=== PATIENT | female | born 1960 | race Asian ===

== ENCOUNTER 2024-11-01 19:37 | Emergency (ER) | payer BC, SELFPAY ==
[2024-11-01 19:59] VITALS: BP 135/87
[2024-11-01 20:16] LABS: % Basophils 0.8 % (0-2); % Eosinophils 1.8 % (0-6); % Immature Granulocytes 0.3 % (0-0.5); % Lymphocytes 21.6 % (20.5-51.1); % Monocytes 7.2 % (1.7-9.3); % Neutrophils 68.3 % (42.2-75.2); Absolute Basophils 0.1 10^3/uL (0-0.2); Absolute Eosinophils 0.1 10^3/uL (0-0.7); Absolute Lymphocytes 1.7 10^3/uL (1.2-3.4); Absolute Monocytes 0.6 10^3/uL (0.1-0.6); Absolute Neutrophils 5.2 10^3/uL (1.4-6.5); Hemoglobin 11.6 g/dL (12.0-16.0); Mean Corp Hgb Conc. 33.1 g/dL (33.0-37.0); Mean Corpuscular Volume 96.7 fL (81.0-99.0); Mean Platelet Volume 8.3 fL (7.4-10.4); Nucleated Red Blood Cells % 0 %; Platelet Count 290 10^3/uL (130-400); Red Blood Cell Count 3.62 10^6/uL (4.20-5.40); Red Cell Dist. Width 13.3 % (11.5-14.5); White Blood Cell Count 7.7 10^3/uL (4.8-10.8)
[2024-11-01 20:32] LABS: ALT (SGPT) 23 U/L (0-35); AST (SGOT) 24 U/L (14-36); Albumin 4.6 g/dl (3.5-5.0); Alkaline Phosphatase 60 U/L (38-126); Blood Urea Nitrogen 15 mg/dl (7-17); Carbon Dioxide 20 mmol/L (22-30); Chloride 102 mmol/L (98-107); Glucose 119 mg/dl (70-99); Potassium 3.7 mmol/L (3.5-5.1); Sodium 135 mmol/L (135-145); Total Bilirubin 0.2 mg/dl (0.2-1.3); Total Protein 7.1 g/dl (6.3-8.2); eGFR > 60.00
--- NOTE | 2024-11-01 22:16 | ED.GENMED ---
History of Present Illness
<MATT Burnette - Last Filed: 11/02/24 00:44>
General
Chief Complaint: Weakness
Source: patient and significant other
Time Seen by Provider: 11/01/24 22:01
Nursing documentation reviewed up to this point in time: agreed with
History of Present Illness
History of Present Illness:
Pt is a 64 yo F who presents to the emergency department for left leg weakness x 1 day. Pt states that her left leg has felt weak to walk on and use and it has been worsening today. Pt reports that she fell about 3 weeks ago. She states that she
tripped on uneven pavement and fell forward, landed on her left leg and hit her face. She states that she was able to walk after the fall and that she got a black left eye from how she landed. Pt denies LOC during or after the fall. Her
reports that he has been helping her walk today as she can not put her full body weight on her left leg. Pt states that she is able move her left leg, left foot, and left toes. Pt also admits to having a mild headache. Pt reports that she has taken
Tylenol and Klonopin due to having increased anxiety. Pt denies having left leg numbness and tingling, left arm or left face weakness, bruising or deformity of the left leg, N/V, dizziness, fever, chills, shortness of breath. Pt reports that she did
not seek medical treatment after the fall 3 weeks ago.
Review of Systems
<MATT Burnette - Last Filed: 11/02/24 00:44>
Review of Systems
Allergies reviewed?: Yes
Constitutional: Reports no symptoms
Respiratory: Reports no symptoms
Cardiac: Reports no symptoms
ABD/GI: Reports no symptoms
Skin: Reports no symptoms
Neurological: Reports headache and weakness (left leg weakness)
Phy Exam
<MATT Burnette - Last Filed: 11/02/24 00:44>
General Physical Exam
General Presentation: well appearing and no apparent distress
General age: appears stated age
General Skin: warm
General Habitus: normal
General Mental: alert
General Hydration: appears well hydrated
Cardiovascular Exam
Cardiovascular Exam: regular rate/rhythm
Pulmonary Exam
Pulmonary Exam: lungs clear
Neurological Exam
Neurological Exam: alert, oriented x3 and speech normal
Musculoskeletal Exam
Musculoskeletal Exam: no edema and other (No pain with palpation of bilateral lower extremities or left hip. AROM and PROM of b/l lower extremities. Weakness of left lower extremity compared to right lower extremity with movement)
Skin Exam
Skin Exam: normal color and other (ecchymosis on lower eyelid of left eye)
Course
<Gilma Atkinson [facility] - Last Filed: 11/02/24 00:44>
Orders/Labs/Results
Orders:
Orders
11/01/24 20:07
Complete Blood Count/With Diff Urgent
Comprehensive Metabolic Panel Urgent
11/01/24 22:45
Urinalysis Reflex To Culture Urgent
Date Specimen was Collected: 11/02/24
Time Specimen was Collected: 00:40
11/02/24 00:34
CT Lumbar Spine W/o Iv Contras Urgent
Comment:
Reason For Exam: left leg wekaness
11/02/24 00:38
CT Head & Neck Angio W/wo IV Urgent
Comment:
Reason For Exam: left leg weakness
11/02/24 00:42
Urine Microscopic Reflex Cult Urgent
Abnormal Lab Results
11/01/24 11/02/24
20:07 00:42
RBC 3.62 L 10^6/uL
(4.20-5.40)
Hgb 11.6 L g/dL
(12.0-16.0)
Hct 35.0 L %
(37.0-47.0)
MCH 32.0 H pg
(27.0-31.0)
Carbon Dioxide 20 L mmol/L
(22-30)
Creatinine 0.5 L mg/dL
(0.6-1.0)
Glucose 119 H mg/dl
(70-99)
Urine Ketones Trace A
(Negative)
Leukocyte Esterase Rfl Trace A
(Negative)
11/01/24 20:07
11/01/24 20:07
Vital Signs
Initial and Last Documented VS:
Initial Vital Signs
Temp Pulse Resp BP Pulse Ox
98.8 F 107 18 135/87 98
11/01/24 19:59 11/01/24 19:59 11/01/24 19:59 11/01/24 19:59 11/01/24 19:59
Last Documented Vital Signs
Temp Pulse Resp BP Pulse Ox
98.8 F 107 18 135/87 97
11/01/24 19:59 11/01/24 19:59 11/01/24 19:59 11/01/24 19:59 11/02/24 00:41
Narenlt;Saul Washington, DO - Last Filed: 11/02/24 01:56>
Orders/Labs/Results
Orders:
Orders
11/01/24 20:07
Complete Blood Count/With Diff Urgent
Comprehensive Metabolic Panel Urgent
11/01/24 22:45
Urinalysis Reflex To Culture Urgent
Date Specimen was Collected: 11/02/24
Time Specimen was Collected: 00:40
11/02/24 00:34
CT Lumbar Spine W/o Iv Contras Urgent
Comment:
Reason For Exam: left leg wekaness
11/02/24 00:38
CT Head & Neck Angio W/wo IV Urgent
Comment:
Reason For Exam: left leg weakness
11/02/24 00:42
Urine Microscopic Reflex Cult Urgent
Abnormal Lab Results
11/01/24 11/02/24
20:07 00:42
RBC 3.62 L 10^6/uL
(4.20-5.40)
Hgb 11.6 L g/dL
(12.0-16.0)
Hct 35.0 L %
(37.0-47.0)
MCH 32.0 H pg
(27.0-31.0)
Carbon Dioxide 20 L mmol/L
(22-30)
Creatinine 0.5 L mg/dL
(0.6-1.0)
Glucose 119 H mg/dl
(70-99)
Urine Ketones Trace A
(Negative)
Leukocyte Esterase Rfl Trace A
(Negative)
11/01/24 20:07
11/01/24 20:07
Vital Signs
Initial and Last Documented VS:
Initial Vital Signs
Temp Pulse Resp BP Pulse Ox
98.8 F 107 18 135/87 98
11/01/24 19:59 11/01/24 19:59 11/01/24 19:59 11/01/24 19:59 11/01/24 19:59
Last Documented Vital Signs
Temp Pulse Resp BP Pulse Ox
98.8 F 107 18 135/87 97
11/01/24 19:59 11/01/24 19:59 11/01/24 19:59 11/01/24 19:59 11/02/24 00:41
<MATT Burnette - Last Filed: 11/02/24 00:44>
MDM/Problems Addressed
Differential Diagnosis Includes:
Left leg weakness, fall
<MATT Burnette - Last Filed: 11/02/24 00:44>
*Critical Care Note
Total Time (30-74mins, 75-104mins- exclusive of procedures): Not Applicable
<Saul Washington DO - Last Filed: 11/02/24 01:56>
*Critical Care Note
Total Time (30-74mins, 75-104mins- exclusive of procedures): 35
comment:
Critical care statement: A total of 35 minutes of critical care time was provided for this patient. This time is separate from time utilized to perform the aforementioned documented procedures. Aggregate critical care time includes only time
during which I was engaged in work directly related to the patient's care, as described above, whether at the bedside or elsewhere in the Emergency Department.
<Saul Washington DO - Last Filed: 11/02/24 01:56>
Update Note
Update Note:
CT HEAD
CTA NECK
CTA COW
Comparison: None.
IMPRESSION:
CT HEAD
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 Both sides measure up to approximately 1.5 cm, however the left side is more extensive than the right and there is 5 mm of [id number] midline shift. Additional subdural hemorrhage along
the falx measuring up to 5 mm in thickness.
Ventricles and sulci are within normal limits.
CTA NECK
No high grade stenosis, occlusion, or dissection of the bilateral common carotid, bilateral internal carotid, or bilateral vertebral arteries.
Thyroid nodules measuring up to 1.6 cm. Consider elective ultrasound for further evaluation.
CTA COW
No large vessel occlusion.
No aneurysm.
ED Attending Note
<MATT Burnette - Last Filed: 11/02/24 00:44>
-
Portions of this chart may have been created with voice recognition software.� Occasional wrong word or��sound alike� substitutions may have occurred due to the inherent limitations of voice recognition software.
<Saul Washington DO - Last Filed: 11/02/24 01:56>
ED Attending Note
Patient seen and examined by attending physician: Yes
I performed the substantive portion of visit, reviewed & personally made and approve the management plan that is documented in note by myself or ELIZABET.: Yes
ED Attending Note:
Pleasant 64-year-old female presents to the emergency department withLeft leg weakness that began approximately 2 days ago. She states that has been progressively worsening. The patient states that she notices the weakness. She states that the
weakness has been worsening. Patient admits to tripping on uneven pavement approximately 3 weeks ago. She was able to walk after that fall but she did have a black. states that today he needed to assist her with her ambulation so he
brought her into the emergency department for evaluation. Patient was seen in conjunction with the PA student. I have reviewed and agree with the history and treatment plan presented. On my independent physical exam, patient is awake, alert, and
oriented x3, seemingly minimal acute distress. While hearing ecchymosis about the left eye. Left leg is normothermic. Not swollen. Full range of motion in the knee and hip joints. Ankle joint appears slightly weaker when compared to the right.
Patient able to dorsiflex with reduced strength on the left. Good capillary refill in the toe.
CT of the head shows bilateral acute on subacute subdural hematomas. Patient to be transferred to [facility]. Spoke with Dr. Suarez and Dr. Arciniega of the trauma center and they accepted patient as a level 2 trauma.
Discharge Plan
Departure
Patient Disposition: Acute Care Hospital
Date of Disposition: 11/02/24
Time of Disposition: 01:54
Discharge Problem:
Bilateral subdural hematomas, Left leg weakness
Referrals:
NONE,* [Active] -
Hospital Transfer
Other hospital: [facility]
I certify that the patient requires transfer: Yes
Discussed case with accepting physician: Dr Issac Suarez
Reason for transfer: higher level of care, medical necessity and specialties available
Interventions
Interventions:
*General Assessment Last Done: 11/01/24 19:59
*ED COVID-19 Vaccine History Last Done: 11/01/24 19:59
ED- Cardiac Assessment Last Done: 11/02/24 00:41
ED- Neurological Assessment Last Done: 11/02/24 00:41
ED- Pulmonary Assessment Last Done: 11/02/24 00:41
Discharge Date and Time
Print Language: MAURITIAN
[2024-11-02 01:16] LABS: Urine Albumin Negative (Neg - Trace); Urine Bilirubin Negative (Negative); Urine Character Clear (Clear); Urine Color Yellow; Urine Glucose Negative (Negative); Urine Ketone Trace (Negative); Urine Leukocyte Trace (Negative); Urine Nitrite Negative (Negative); Urine Occult Blood Negative (Negative); Urine Urobilinogen Negative (Neg - 1+)
[2024-11-02 02:05] VITALS: BMI 23.2
[2024-11-02 02:23] VITALS: BP 150/85
[2024-11-02 02:27] LABS: Urine Red Blood Cell 0-2 /HPF (0-2)
[2024-11-02 02:40] VITALS: BP 136/94
[2024-11-02 03:00] VITALS: BP 137/89
[2024-11-02 03:20] VITALS: BP 144/86
[2024-11-02 03:40] VITALS: BP 148/84
== END 2024-11-02 04:06 | disposition short-term general hospital (02) ==
LOC: EMR 19:37
PROVIDERS: Emergency Medicine; EMERGENCY PHYSICIAN Student in an Organized Health Care Education/Training Program; FAMILY PHYSICIAN Family Medicine
DX: S06.5XAA Traumatic subdural hemorrhage with loss of consciousness status unknown, initial encounter (principal); W19.XXXA Unspecified fall, initial encounter
CPT/HCPCS: 99284; 70496; 70498; 72131; 80053; 81003; 81015; 85025; Q9967

== ENCOUNTER → 2024-11-10 12:32 | Outpatient (REF) | payer BC, SELFPAY | LOC: HWRAD 12:32 | PROVIDERS: ATTENDING PHYSICIAN Neurological Surgery; FAMILY PHYSICIAN Family Medicine | DX: S06.5XAA Traumatic subdural hemorrhage with loss of consciousness status unknown, initial encounter (principal) | CPT/HCPCS: 70450 ==

== ENCOUNTER → 2024-12-12 15:04 | Outpatient (REF) | payer BC, SELFPAY | LOC: HWRAD 15:04 | PROVIDERS: ATTENDING PHYSICIAN Neurological Surgery; FAMILY PHYSICIAN Family Medicine | DX: S06.5XAA Traumatic subdural hemorrhage with loss of consciousness status unknown, initial encounter (principal) | CPT/HCPCS: 70450 ==

== ENCOUNTER → 2025-01-17 13:33 | Outpatient (REF) | payer BC, SELFPAY | LOC: HWRAD 13:33 | PROVIDERS: ATTENDING PHYSICIAN Physician Assistant Surgical; FAMILY PHYSICIAN Family Medicine | DX: S06.5XAA Traumatic subdural hemorrhage with loss of consciousness status unknown, initial encounter (principal) | CPT/HCPCS: 70450 ==

== ENCOUNTER → 2025-01-31 13:50 | Outpatient (REF) | payer BC, SELFPAY | LOC: HWWDC 13:50 | PROVIDERS: ATTENDING PHYSICIAN Obstetrics & Gynecology; FAMILY PHYSICIAN Family Medicine | DX: Z12.31 Encounter for screening mammogram for malignant neoplasm of breast (principal) | CPT/HCPCS: 77063; 77067 ==